=== PATIENT | female | born 1940 | race Asian ===

== ENCOUNTER 2017-03-01 06:46 | Day surgery (SDC) | payer MEDICARE ==
[~2017-03-01] VITALS: Ht 152.4 cm; Wt 62.6 kg
[2017-03-01] VITALS (8 sets, daily range): BP systolic 94–121; BP diastolic 54–78
[~2017-03-01 06:46] MED LIST: FOSAMAX70 MG ORAL; RESTASIS1 EACH BOTH EYES
[2017-03-01] MEDS ORDERED: Midazolam 2mg/2ml Inj ONE (06:47)
[2017-03-01] MEDS ORDERED: fentaNYL 100 mcg/2 mL IV ONE (06:47)
[2017-03-01] MEDS ORDERED: LR 1000ml ONE (06:47)
[2017-03-01] MEDS ORDERED: NS Irrig 1000ml ONE (06:47)
[2017-03-01] MEDS ORDERED: Sterile Water Irrig 1000ml IRRIG ONE (06:47)
[2017-03-01] MEDS: Gatifloxacin Opth Solution 0.5% RIGHT EYE SCH ×3 (07:05→07:28)
[2017-03-01] MEDS ORDERED: Gatifloxacin Opth Solution 0.5% ONE (07:12)
[2017-03-01] MEDS ORDERED: Diclofenac Sod 0.1% Op Soln ONE (07:12)
[2017-03-01] MEDS ORDERED: Tobradex Opth Susp 2.5ml ONE (07:13)
[2017-03-01] MEDS ORDERED: Akten 3.5% 1ml Btl ONE (07:13)
[2017-03-01] MEDS ORDERED: Phenylephrine 2.5% Op Soln ONE (07:13)
[2017-03-01] MEDS ORDERED: Tropicamide 1% Opth Soln ONE (07:13)
[2017-03-01] MEDS ORDERED: Lidocaine 1% MPF 10mg/ml 5ml ONE (07:24)
[2017-03-01] MEDS ORDERED: EPINEPHrine 1mg/1ml Amp ONE (07:24)
[2017-03-01] MEDS ORDERED: BSS 15ml BTL ONE (07:24)
[2017-03-01] MEDS ORDERED: Povidone-Iodine 5% opth solution ONE (07:24)
[2017-03-01] MEDS ORDERED: Sodium Hyaluronate 14 mg/ml 0.85ml ONE (07:24)
[2017-03-01] MEDS ORDERED: Dexamethasone 4mg/ml vial ONE (07:24)
[2017-03-01] MEDS ORDERED: BSS 500ml btl ONE (07:24)
[2017-03-01] MEDS: Phenylephrine 2.5% Op Soln RIGHT EYE SCH ×3 (07:27→07:48)
[2017-03-01] MEDS: Tropicamide 1% Opth Soln RIGHT EYE SCH ×3 (07:27→07:48)
[2017-03-01] MEDS: Akten 3.5% 1ml Btl RIGHT EYE SCH ×3 (07:27→07:48)
[2017-03-01] MEDS: Tobradex Opth Susp 2.5ml RIGHT EYE SCH ×3 (07:27→07:48)
[2017-03-01] MEDS: Diclofenac Sod 0.1% Op Soln RIGHT EYE SCH ×3 (07:28→07:48)
--- NOTE | 2017-03-01 07:39 | Pre-Procedure Note/Attestation ---
Pre-Procedure Note/Attestation Complete Prior to Procedure Planned Procedure: right Procedure Narrative: cataract extraction with implant right eye Indications for Procedure Pre-Operative Diagnosis: cataract left eye Attestation I attest that I discussed the nature of the procedure; its benefits; risks and complications; and alternatives (and the risks and benefits of such alternatives ), prior to the procedure, with the patient (or the patient's legal inside sales account representative). I attest that, if there was a reasonable possibility of needing a blood transfusion, the patient (or the patient's legal inside sales account representative) was given the [facility] standardized written summary, pursuant to the [place] Blood Safety Act ([place] Health and Safety Code # 1645, as amended). I attest that I re-evaluated the patient just prior to the surgery and that there has been no change in the patient's H&P, except as documented below: MARTHA LYNN March 01, 2017 07:39
[2017-03-01] MEDS ORDERED: LR 1000ml 1,000 ML IV SCH (08:15)
[2017-03-01] MEDS ORDERED: fentaNYL 100 mcg/2 mL IV PRN (09:30)
--- NOTE | 2017-03-01 09:30 | Anethesia Preoperative Eval ---
Anesthesia Pre-op PMH/ROS General Date of Evaluation: March 01, 2017 Time of Evaluation: 09:29 Anesthesiologist: han ASA Score: ASA 2 Mallampati Score Class I : Soft palate, uvula, fauces, pillars visible Class II: Soft palate, uvula, fauces visible Class III: Soft palate, base of uvula visible Class IV: Only hard plate visible Surgeon: ronaldo Diagnosis: cataract Surgical Procedure: cataract extraction Anesthesia History: none Family History: no anesthesia problems Allergies: Coded Allergies: Cultivated Oat Pollen (Verified Allergy, Intermediate, 03/01/17) Dust (Verified Allergy, Mild, 03/01/17) Medications: see eMAR Past Medical History Cardiovascular: Denies: CAD, HTN, [place], arrhythmia, other, valve dz Pulmonary: Denies: COPD, AMNA, asthma, other Gastrointestinal/Genitourinary: Denies: CRI, ESRD, GERD, other Neurologic/Psychiatric: Denies: CVA, TIA, dementia, depression/anxiety, other Endocrine: Denies: DM, hypothyroidism, other, steroids HEENT: Reports: cataract (R) Musculoskeletal/Integumentary: Reports: DJD, OA Anesthesia Pre-op Phys. Exam Physician Exam Last Vital Signs Date Time Temp Pulse Resp B/P Pulse Ox O2 Delivery O2 Flow Rate FiO2 03/01/17 07:34 97.4 66 16 104/70 99 Room Air Constitutional: NAD Neurologic: CN 2-12 intact Cardiovascular: RRR Respiratory: CTA Gastrointestinal: S/NT/ND Airway Exam Mallampati Classification 2 Mallampati Score: Class II MO: full ROM: full Dentures: no lower, no upper Anesthesia Pre-op A/P Studies Pre-op Studies: EKG - sr Risk Assessment & Plan Plan: mac Status Change Before Surgery: No Pre-Antibiotics Drug: none LORNARISUSANNA BAUER RELIABILITY TECHNICIAN March 01, 2017 09:30
--- NOTE | 2017-03-01 09:41 | Brief Operative Note ---
Immediate Post Operative Note Operative Note Pre-op Diagnosis: cataract right eye Procedure: phacoemulsification of cataract with implant right eye Post-op Diagnosis: same as pre-op Surgeon: martha higgins Switch Technician: none Anesthesiologist: azar short crna Anesthesia: MAC Specimen: none Complications: none Condition: stable Estimated Blood Loss: none Drains: none Implant(s) used?: Yes MARTHA HIGGINS March 01, 2017 09:41
--- NOTE | 2017-03-01 09:43 | Immediate Post-Op Evaluation ---
Immediate Post-Op Evalulation Immediate Post-Op Evalulation Procedure: cataract extraction Date of Evaluation: March 01, 2017 Time of Evaluation: 09:43 IV Fluids: 300 Blood Pressure Systolic: 103 Blood Pressure Diastolic: 59 Pulse Rate: 57 Respiratory Rate: 14 O2 Sat by Pulse Oximetry: 98 Temperature (Fahrenheit): 97.5 Nausea: No Vomiting: No Complications none Patient Status: awake, patent Hydration Status: adequate Drug: none SUSANNA MEJIA CRNA March 01, 2017 09:43
--- NOTE | 2017-03-01 10:39 | 48 Hour Post Anesthesia Eval ---
Post Anesthesia Evaluation Procedure: cataract extraction Date of Evaluation: March 01, 2017 Time of Evaluation: 10:39 Blood Pressure Systolic: 125 0: 70 Pulse Rate: 74 Respiratory Rate: 14 O2 Sat by Pulse Oximetry: 100 Airway: patent Nausea: No Vomiting: No Hydration Status: adequate Mental Status/LOC: patient returned to baseline Post-Anesthesia Complications: none Follow-up care needed: N/A SUSANNA MEJIA CRNA March 01, 2017 10:39
--- NOTE | 2017-03-01 16:52 | Operative Note - Dictated ---
DATE OF OPERATION: 03/01/2017 PREOPERATIVE DIAGNOSIS: Cataract, right eye. PREOPERATIVE DIAGNOSIS: Cataract, right eye. PROCEDURE: Phacoemulsification cataract right eye with placement of posterior chamber intraocular lens. SURGEON: Kristofer Graff M.D. GAME MASTER: None. ANESTHESIA: MAC/topical. ANESTHESIOLOGIST: Yenny Ordaz C.R.N.A. INDICATION FOR PROCEDURE: Poor vision, right eye. DESCRIPTION OF FINDINGS: Nuclear sclerotic and cortical cataract, right eye. DESCRIPTION OF PROCEDURE: The patient received a topical anesthetic block consisting of 3.5% Akten eye drops. The eye was then prepped and draped in usual manner. A lid speculum was placed. An operating Zeiss microscope was positioned. A temporal corneal groove was made with the areli blade. A SuperSharp blade made a stab incision at the 12 o'clock position. A 0.1 mL of 1% nonpreserved intracameral lidocaine was injected. Healon was instilled into the anterior chamber and a 2.5/2.8 mm trapezoidal areli blade was used to complete the temporal corneal wound. A cystotome was used to create an anterior capsular flap. Utrata forceps were used to complete the capsulorrhexis. BSS on a cannula was used to hydrodissect the nucleus. The lens nucleus phacoemulsified in a phaco-fracture technique. Remaining cortical material was removed with the I/A and the posterior capsule polished with the I/A on Cap vac. Healon was reinstilled into the capsular bag and anterior chamber, and an Adan foldable one-piece posterior chamber intraocular lens, model ZCB00, power 26.5 diopter, serial #[id number] was placed in the injector. The lens was put in the capsular bag. The I/A tip was used to remove the Healon and position the lens. The wound edge was hydrated with BSS and a blunt-tipped cannula. The wound was checked and found to be watertight. The lid speculum was removed and a drop of TobraDex and Zymaxid was placed. A clear plastic shield was taped over the eye. The patient tolerated the procedure well and left the operating room in good condition. Kristofer Graff M.D. ([facility]) DR: LEEANNE JOB#: [id number] CC: RIOS
== END 2017-03-01 11:45 | disposition home or self-care (01) ==
LOC: SUR 06:46
DX: H25.11 Age-related nuclear cataract, right eye (principal); H25.011 Cortical age-related cataract, right eye; J31.0 Chronic rhinitis; R10.13 Epigastric pain; E66.9 Obesity, unspecified; M19.90 Unspecified osteoarthritis, unspecified site
CPT/HCPCS: 94003; 94150; J2250

== ENCOUNTER 2017-03-29 06:46 | Day surgery (SDC) | payer MEDICARE ==
[2017-03-29] VITALS (10 sets, daily range): BP systolic 109–132; BP diastolic 52–69
[~2017-03-29] VITALS: Ht 152.4 cm; Wt 63.5 kg
[2017-03-29] MEDS: Gatifloxacin Opth Solution 0.5% LEFT EYE SCH ×3 (06:00→06:10)
[~2017-03-29 06:46] MED LIST changes: +Akten 3.5% 1ml Btl ONE; +Diclofenac Sod 0.1% Op Soln ONE; +Gatifloxacin Opth Solution 0.5% ONE; +Phenylephrine 2.5% Op Soln ONE; +Tobradex Opth Susp 2.5ml ONE; +Tropicamide 1% Opth Soln ONE
[2017-03-29] MEDS ORDERED: BSS 500ml btl ONE (07:06)
[2017-03-29] MEDS ORDERED: Sodium Hyaluronate 14 mg/ml 0.85ml ONE (07:07)
[2017-03-29] MEDS ORDERED: Povidone-Iodine 5% opth solution ONE (07:07)
[2017-03-29] MEDS ORDERED: BSS 15ml BTL ONE (07:07)
[2017-03-29] MEDS: Akten 3.5% 1ml Btl LEFT EYE SCH ×3 (07:15→07:32)
[2017-03-29] MEDS: Diclofenac Sod 0.1% Op Soln LEFT EYE SCH ×3 (07:16→07:33)
[2017-03-29] MEDS: Phenylephrine 2.5% Op Soln LEFT EYE SCH ×3 (07:16→07:33)
[2017-03-29] MEDS: Tropicamide 1% Opth Soln LEFT EYE SCH ×3 (07:16→07:33)
[2017-03-29] MEDS: Tobradex Opth Susp 2.5ml LEFT EYE SCH ×3 (07:16→07:33)
--- NOTE | 2017-03-29 07:41 | Pre-Procedure Note/Attestation ---
Pre-Procedure Note/Attestation Complete Prior to Procedure Planned Procedure: left Procedure Narrative: cataract extraction with implant left eye Indications for Procedure Pre-Operative Diagnosis: cataract left eye Attestation I attest that I discussed the nature of the procedure; its benefits; risks and complications; and alternatives (and the risks and benefits of such alternatives ), prior to the procedure, with the patient (or the patient's legal vendor representatives). I attest that, if there was a reasonable possibility of needing a blood transfusion, the patient (or the patient's legal vendor representatives) was given the [facility] standardized written summary, pursuant to the [place] Blood Safety Act ([place] Health and Safety Code # 1645, as amended). I attest that I re-evaluated the patient just prior to the surgery and that there has been no change in the patient's H&P, except as documented below: MARTHA LYNN Mar 29, 2017 07:41
[2017-03-29] MEDS ORDERED: Midazolam 2mg/2ml Inj ONE (08:30)
[2017-03-29] MEDS ORDERED: Sterile Water Irrig 1000ml IRRIG ONE (08:30)
[2017-03-29] MEDS ORDERED: NS Irrig 1000ml ONE (08:30)
[2017-03-29] MEDS ORDERED: LR 1000ml ONE (08:30)
--- NOTE | 2017-03-29 08:32 | Anethesia Preoperative Eval ---
Anesthesia Pre-op PMH/ROS General Date of Evaluation: Mar 29, 2017 Time of Evaluation: 08:31 Anesthesiologist: han ASA Score: ASA 2 Mallampati Score Class I : Soft palate, uvula, fauces, pillars visible Class II: Soft palate, uvula, fauces visible Class III: Soft palate, base of uvula visible Class IV: Only hard plate visible Mallampati Classification: Class II Surgeon: ronaldo Diagnosis: cataract Surgical Procedure: cataract extraction Anesthesia History: PONV Family History: no anesthesia problems Allergies: Coded Allergies: Cultivated Oat Pollen (Verified Allergy, Intermediate, 03/01/17) Dust (Verified Allergy, Mild, 03/01/17) Medications: see eMAR Past Medical History Cardiovascular: Denies: CAD, HTN, [place], arrhythmia, other, valve dz Pulmonary: Denies: COPD, AMNA, asthma, other Gastrointestinal/Genitourinary: Denies: CRI, ESRD, GERD, other Neurologic/Psychiatric: Denies: CVA, TIA, dementia, depression/anxiety, other Endocrine: Denies: DM, hypothyroidism, other, steroids HEENT: Reports: cataract (L), cataract (R) Hematology/Immune: Denies: DVT, anemia, bleeding disorder, other Musculoskeletal/Integumentary: Reports: DJD, OA PSxH Narrative: cataract extraction left eye Anesthesia Pre-op Phys. Exam Physician Exam Last Vital Signs Date Time Temp Pulse Resp B/P Pulse Ox O2 Delivery O2 Flow Rate FiO2 03/29/17 07:21 97.5 55 20 112/63 99 Room Air Constitutional: NAD Neurologic: CN 2-12 intact Cardiovascular: RRR Respiratory: CTA Gastrointestinal: S/NT/ND Airway Exam Mallampati Score: Class II MO: full ROM: full Dentures: no lower, no upper Anesthesia Pre-op A/P Studies Pre-op Studies: EKG - sr Risk Assessment & Plan Plan: mac Status Change Before Surgery: No Pre-Antibiotics Drug: none SUSANNA MEJIA CRNA Mar 29, 2017 08:32
--- NOTE | 2017-03-29 08:57 | Immediate Post-Op Evaluation ---
Immediate Post-Op Evalulation Immediate Post-Op Evalulation Procedure: cataract extraction with IOL left eye Date of Evaluation: Mar 29, 2017 Time of Evaluation: 08:56 IV Fluids: 200 Blood Pressure Systolic: 120 Blood Pressure Diastolic: 60 Pulse Rate: 73 Respiratory Rate: 14 O2 Sat by Pulse Oximetry: 98 Temperature (Fahrenheit): 98.1 Nausea: No Vomiting: No Complications none Patient Status: awake, reacts, patent Hydration Status: adequate Drug: none SUSANNA MEJIA CRNA Mar 29, 2017 08:57
--- NOTE | 2017-03-29 08:57 | Brief Operative Note ---
Immediate Post Operative Note Operative Note Pre-op Diagnosis: cataract left eye Procedure: phacoemulsification of cataract with implant left eye Post-op Diagnosis: same as pre-op Surgeon: martha higgins Cotton Converter: none Anesthesiologist: azar short crna Anesthesia: MAC Specimen: none Complications: none Condition: stable Estimated Blood Loss: none Drains: none Implant(s) used?: Yes MARTHA HIGGINS Mar 29, 2017 08:57
--- NOTE | 2017-03-29 09:26 | 48 Hour Post Anesthesia Eval ---
Post Anesthesia Evaluation Procedure: cataract extraction with IOL left eye Date of Evaluation: Mar 29, 2017 Time of Evaluation: 09:26 Blood Pressure Systolic: 109 0: 68 Pulse Rate: 68 Respiratory Rate: 14 O2 Sat by Pulse Oximetry: 99 Airway: patent Nausea: No Vomiting: No Hydration Status: adequate Cardiopulmonary Status: stable Mental Status/LOC: patient returned to baseline Post-Anesthesia Complications: none Follow-up care needed: N/A SUSANNA MEJIA CRNA Mar 29, 2017 09:26
[2017-03-29] MEDS ORDERED: EPINEPHrine 1mg/1ml Amp ONE (09:49)
[2017-03-29] MEDS ORDERED: Lidocaine 1% MPF 10mg/ml 5ml ONE (09:49)
[2017-03-29] MEDS ORDERED: Dexamethasone 4mg/ml vial ONE (09:49)
--- NOTE | 2017-03-29 16:30 | Operative Note - Dictated ---
DATE OF OPERATION: 03/29/2017 PREOPERATIVE DIAGNOSIS: Cataract, left eye. POSTOPERATIVE DIAGNOSIS: Cataract, left eye. PROCEDURE: Phacoemulsification cataract left eye with placement of posterior chamber intraocular lens. SURGEON: Kristofer Graff M.D. ([facility] [place] ROTARY CUTTER FEEDER: None. ANESTHESIA: MAC/topical. ANESTHESIOLOGIST: Yenny Ordaz C.R.N.A. INDICATION FOR PROCEDURE: Poor vision, left eye. DESCRIPTION OF FINDINGS: Nuclear sclerotic cataract, left eye. DESCRIPTION OF PROCEDURE: The patient received a topical anesthetic block consisting of 3.5% Akten eye drops. The eye was then prepped and draped in usual manner. A lid speculum was placed. An operating Zeiss microscope was positioned. The temporal corneal groove was made with the areli blade. A SuperSharp blade made a stab incision at the 6 o'clock position. A 0.1 mL of 1% nonpreserved intracameral lidocaine was injected. Healon was instilled into the anterior chamber and 2.5/2.8 mm trapezoidal areli blade was used to complete the temporal corneal wound. A cystotome was used to create an anterior capsular flap. Utrata forceps were used to complete the capsulorrhexis. BSS on a cannula was used to hydrodissect the nucleus. The lens nucleus was phacoemulsified in a phaco-fracture technique. Remaining cortical material was removed with the I/A and the posterior capsule polished with the I/A on Cap vac. Healon was reinstilled into the capsular bag and anterior chamber, and an Adan foldable one-piece posterior chamber intraocular lens, model ZCB00, power 21.0 diopter, serial number [id number] was placed in the injector. The lens was put into the capsular bag. The I/A tip was used to remove the Healon and position the lens. The wound edge was hydrated with BSS and a blunt-tipped cannula. The wound was checked and found to be watertight. The lid speculum was removed and a drop of TobraDex and Zymaxid was placed. A clear plastic shield was taped over the eye. The patient tolerated the procedure well and left the operating room in good condition. Kristofer Graff M.D. ([facility]) DR: Robbie JOB#: [id number] CC:
== END 2017-03-29 11:05 | disposition home or self-care (01) ==
LOC: SUR 06:46
DX: H25.12 Age-related nuclear cataract, left eye (principal); J30.9 Allergic rhinitis, unspecified; R14.0 Abdominal distension (gaseous); M19.90 Unspecified osteoarthritis, unspecified site; Z87.898 Personal history of other specified conditions
CPT/HCPCS: 66984; J0171; J1100; J2250; J7120; V2632; 94003; 94150